=== PATIENT | male | born 1990 | race Two or more races ===

== ENCOUNTER 2019-02-13 02:00 | Emergency (ER) | payer MEDICAID, OTHER ==
[~2019-02-13] VITALS: Ht 152.4 cm; Wt 68.0 kg
[2019-02-13] MEDS ORDERED: VANCOMYCIN 1GM/250ML 250 ML IV ONE (02:45)
[2019-02-13] MEDS ORDERED: PIPERACILLIN-TAZOB 3.375GM 100 ML IV ONE (02:45)
[2019-02-13] MEDS ORDERED: ONDANSETRON HCL 4 MG/2 ML VIAL IV ONE (03:00)
[2019-02-13] MEDS ORDERED: MORPHINE SULF INJ 2 MG/ML SYRINGE 1ML IV ONE (03:00)
[2019-02-13 04:25] LABS: Basophils # (auto) 0 uL; Basophils % (auto) 0.1 % (0.0-2.0); Eosinophils # (auto) 0.3 uL; Eosinophils % (auto) 1.7 % (0.0-7.0); Hematocrit 43.6 % (41.0-53.0); Hemoglobin 14.5 g/dL (13.5-17.5); Lymphocytes # (auto) 1.5 uL; Lymphocytes % (auto) 8.4 % (10.0-50.0); Mean Corpuscular Hemoglobin 28.4 pg (28.0-32.0); Mean Corpuscular Hgb Conc. 33.3 g/dL (32.0-36.0); Mean Corpuscular Volume 85.1 fL (80.0-100.0); Monocytes # (auto) 1.3 uL; Monocytes % (auto) 7.3 % (0.0-12.0); Neutrophils # (auto) 14.7 uL; Neutrophils % (auto) 82.5 % (37.0-80.0); Nucleated Red Blood Cells % 0.1 %; Platelet Count (auto) 108 10^3/uL (140-450); Red Blood Cells 5.13 10^6/uL (4.5-5.90); Red Cell Distribution Width 13.9 % (11.8-14.3); White Blood Cell 17.9 10^3/uL (4.4-10.8)
[2019-02-13 04:40] LABS: Potassium 3.9 mmol/L (3.5-5.1)
[2019-02-13 04:52] LABS: Albumin 3.9 g/dL (3.4-5.0); BUN/Creatinine Ratio 13.9; Bilirubin, Total 0.5 mg/dL (0.2-1.0); Calcium 8.8 mg/dL (8.5-10.1); Total Protein 7.4 g/dL (6.4-8.2)
[2019-02-13] MEDS ORDERED: MORPHINE SULFATE 4 MG/ML SYR/VIAL ONE (05:09)
[2019-02-13] MEDS ORDERED: MORPHINE SULF INJ 2 MG/ML SYRINGE 1ML IV PRN (14:30)
[2019-02-13] MEDS ORDERED: ONDANSETRON HCL 4 MG/2 ML VIAL IV PRN (14:30)
[2019-02-13] MEDS ORDERED: VANCOMYCIN PER PHARMACY 0 MG IV SCH (14:30)
[2019-02-13] MEDS ORDERED: HYDROcodone-ACET 5/325MG TAB PO PRN (14:30)
[2019-02-13] MEDS ORDERED: SODIUM CHLORIDE 0.9% 1,000 ML IV SCH (14:30)
[2019-02-13] MEDS ORDERED: ACETAMINOPHEN 500 MG TAB PO PRN (14:30)
[2019-02-13 14:48] VITALS: BP 127/81
[2019-02-13] MEDS: PIPERACILLIN-TAZOB 3.375GM 100 ML IV SCH ×2 (14:59→18:12)
[2019-02-13] MEDS ORDERED: VANCOMYCIN 1GM/250ML 250 ML IV SCH (16:00)
[2019-02-13] MEDS ORDERED: diphenhdrAMINE HCL 50 MG/1 ML VL ONE (18:03)
[2019-02-13] MEDS ORDERED: diphenhdrAMINE HCL 50 MG/1 ML VL IV ONE (18:15)
== END 2019-02-13 19:02 | disposition home or self-care (01) ==
LOC: ER 02:00
DX: L03.113 Cellulitis of right upper limb (principal); D72.829 Elevated white blood cell count, unspecified; J45.909 Unspecified asthma, uncomplicated
CPT/HCPCS: 36415; 73200; 80053; 85025; 87040; 87076; 87077; 87205; 96365; 96366; 96368; 96375; 96376; 99284; J1200; J2270; J2405; J2543; J3370; J7030

== ENCOUNTER 2019-02-14 08:41 | Emergency (ER) | payer OTHER ==
[~2019-02-14] VITALS: Ht 175.3 cm; Wt 68.0 kg
[2019-02-14 09:09] VITALS: BP 136/84
[2019-02-14] MEDS ORDERED: CLINDAMYCIN 600 MG/4 ML VL IM ONE (09:15)
[2019-02-14] MEDS ORDERED: cefTRIAXone SOD 1,000 MG VL IM ONE (09:15)
[2019-02-14] MEDS ORDERED: CLINDAMYCIN 600MG IV 50 ML IV ONE ×2 (09:18→09:30)
[2019-02-14] MEDS ORDERED: cefTRIAXone 1GM/50ML D5W 50 ML IV ONE ×2 (09:18→09:30)
== END 2019-02-14 10:33 | disposition home or self-care (01) ==
LOC: ER 08:41
DX: S61.212D Laceration without foreign body of right middle finger without damage to nail, subsequent encounter (principal); L03.011 Cellulitis of right finger; J45.909 Unspecified asthma, uncomplicated; Z48.01 Encounter for change or removal of surgical wound dressing; X58.XXXD Exposure to other specified factors, subsequent encounter
CPT/HCPCS: 29130; 96365; 96368; 99283; J0696; J3490

== ENCOUNTER 2023-06-03 10:58 | Emergency (ER) | payer OTHER ==
[~2023-06-03] VITALS: Ht 172.7 cm; Wt 69.5 kg
[2023-06-03 11:10] VITALS: BP 130/90; TEMP 97.9
[2023-06-03] MEDS ORDERED: ZOFR4T PO (12:44)
[2023-06-03] MEDS ORDERED: CIPR1SUS8 OT (12:44)
[2023-06-03] MEDS ORDERED: IBUP-1454 PO (12:44)
[2023-06-03] MEDS ORDERED: ONDANSETRON ODT 4 MG TAB PO ONE (12:45)
[2023-06-03] MEDS ORDERED: ACETAMINOPHEN 500 MG TAB PO ONE (12:45)
[2023-06-03 13:15] VITALS: PULSE 99; RESP 18; O2SAT 98
== END 2023-06-03 13:32 | disposition home or self-care (01) ==
LOC: ER 10:58
DX: H92.02 Otalgia, left ear (principal); R11.0 Nausea; J45.909 Unspecified asthma, uncomplicated; Z79.1 Long term (current) use of non-steroidal anti-inflammatories (NSAID); Z79.899 Other long term (current) drug therapy
CPT/HCPCS: 99283; Q0162

== ENCOUNTER 2025-08-26 22:42 | Emergency (ER) | payer OTHER ==
[~2025-08-26] VITALS: Ht 172.7 cm; Wt 77.7 kg
[~2025-08-26 22:42] MED LIST: CIPR1SUS8 OT; IBUP-1454 PO; ZOFR4T PO
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
[2025-08-27 01:23] VITALS: BP 150/97; PULSE 73; RESP 16; TEMP 98; O2SAT 96
== END 2025-08-27 01:23 | disposition home or self-care (01) ==
LOC: ER 22:46
DX: T59.811A Toxic effect of smoke, accidental (unintentional), initial encounter (principal); J45.909 Unspecified asthma, uncomplicated; X58.XXXA Exposure to other specified factors, initial encounter; Y93.89 Activity, other specified; Y92.89 Other specified places as the place of occurrence of the external cause; Y99.0 Civilian activity done for income or pay
CPT/HCPCS: 71046